=== PATIENT | male | born 1990 | race Caucasian/White ===

== ENCOUNTER 2018-12-30 09:28 | Emergency (ER) | payer BC ==
[2018-12-30 09:41] VITALS: TEMP 98.3; BMI 24.1
[2018-12-30] MEDS ORDERED: morphine CARPU-JECT 4 MG/1 ML DISP.SYRIN IVPUSH ONE (10:04)
[2018-12-30] MEDS ORDERED: SODIUM CHLORIDE 1,000 ML IV STA ×2 (10:04→12:13)
[2018-12-30] MEDS ORDERED: ONDANSETRON 4 MG/2 ML VIAL IVPUSH ONE (10:04)
[2018-12-30] MEDS ORDERED: morphine SULFATE 4 MG/ML VIAL ONE (10:16)
[2018-12-30] MEDS ORDERED: ONDANSETRON 4 MG/2 ML VIAL ONE (10:17)
[2018-12-30 10:47] LABS: BASO % 0.1 % (0-2.0); EOS % 1.6 % (0-4.5); HEMATOCRIT 47.6 % (35.4-49); HEMOGLOBIN 16.1 GM/dL (11.7-16.9); LYMPH % 9.2 % (8-40); MCHC 33.8 g/dl (32.0-35.9); MEAN CELL VOLUME 91.9 fl (80-96); MEAN PLT VOLUME 9.2 fl (7.5-11.1); MONO % 4.3 % (3.8-10.2); NEUT % 84.8 % (42.8-82.8); PLATELET COUNT 220 K/MM3 (134-434); RBC 5.18 M/mm3 (4.00-5.60); WHITE BLOOD COUNT 15.7 K/mm3 (4.0-10.0)
--- NOTE | 2018-12-30 10:55 | PDOC ---
History of Present Illness - General History Source: Patient - History of Present Illness Timing/Duration: reports: constant Quality: reports: severe <Henny Lagunas - Last Filed: 12/30/18 15:02> <Donna Garber - Last Filed: 12/30/18 15:27> - General Chief Complaint: Pain, Acute Stated Complaint: WEAKNESS Time Seen by Provider: 12/30/18 09:49 Past History - Past Medical History COPD: No Other medical history: bells palsy - Suicide/Smoking/Psychosocial Hx Smoking History: Never smoked <Henny Lagunas - Last Filed: 12/30/18 15:02> <Donna Garber - Last Filed: 12/30/18 15:27> - Past Medical History Allergies/Adverse Reactions: Allergies Allergy/AdvReac Type Severity Reaction Status Date / Time Sulfa (Sulfonamide Allergy Verified 12/30/18 09:38 Antibiotics) Home Medications: Ambulatory Orders Ibuprofen [Motrin -] 800 mg PO Q6H #30 tablet 12/30/18 Ondansetron HCl [Zofran] 4 mg PO Q8H #12 tablet 12/30/18 Tamsulosin HCl [Flomax] 0.4 mg PO DAILY #7 cap.er.24h 12/30/18 Tamsulosin HCl [Flomax] 0.4 mg PO DAILY #7 capsule 12/30/18 Tramadol HCl 50 mg PO Q6H #20 tablet MDD 200 mg 12/30/18 Review of Systems - Review of Systems Constitutional: No: Chills, Fever ABD/GI: Yes: Nausea, Abdominal cramping. No: Blood Streaked Bowels, Constipated , Diarrhea, Rectal Bleeding, Vomiting : Yes: Flank Pain. No: Dysuria, Hematuria <Henny Lagunas - Last Filed: 12/30/18 15:02> *Physical Exam - Vital Signs Last Vital Signs Temp Pulse Resp BP Pulse Ox 98.3 F 75 18 151/92 100 12/30/18 09:39 12/30/18 09:39 12/30/18 09:39 12/30/18 09:39 12/30/18 09:39 - Physical Exam Comments: 12/30/18 10:55 ill luis fernando and pale General Appearance: Yes: Appropriately Dressed, Moderate Distress HEENT: positive: Normal Voice Neck: positive: Supple Respiratory/Chest: negative: Respiratory Distress Gastrointestinal/Abdominal: positive: Tender (to R side of abd, poorly localized ), Soft Male Genitalia: positive: normal genitalia Musculoskeletal: negative: CVA Tenderness Integumentary: positive: Dry, Warm Neurologic: positive: Fully Oriented, Alert, Normal Mood/Affect <Elisabeth LagunasLexi - Last Filed: 12/30/18 15:02> - Vital Signs Last Vital Signs Temp Pulse Resp BP Pulse Ox 98.3 F 75 18 151/92 100 12/30/18 09:39 12/30/18 09:39 12/30/18 09:39 12/30/18 09:39 12/30/18 09:39 <Donna Garber - Last Filed: 12/30/18 15:27> ED Treatment Course - LABORATORY CBC & Chemistry Diagram: 12/30/18 10:21 12/30/18 10:21 - RADIOLOGY Radiology Studies Ordered: Category Date Time Status ABDOMEN & PELVIS CT WITH CONTR [CT] Stat CT Scan 12/30/18 10:04 Ordered - Medications Given in the ED: ED Medications Discontinued Medications Generic Name Dose Route Start Last Admin Trade Name Freq PRN Reason Stop Dose Admin Morphine Sulfate 4 mg 12/30/18 10:04 12/30/18 10:29 Morphine Injection - IVPUSH 12/30/18 10:05 4 mg ONCE ONE Administration Ondansetron HCl 4 mg 12/30/18 10:04 12/30/18 10:29 Zofran Injection IVPUSH 12/30/18 10:05 4 mg ONCE ONE Administration <Elisabeth LagunasLexi - Last Filed: 12/30/18 15:02> - LABORATORY CBC & Chemistry Diagram: 12/30/18 10:21 12/30/18 10:21 - ADDITIONAL ORDERS Additional order review: Laboratory Results 12/30/18 10:21 Sodium 137 Potassium 3.8 Chloride 106 Carbon Dioxide 25 Anion Gap 6 L BUN 14 Creatinine 1.0 Creat Clearance w eGFR 88.34 Random Glucose 191 H Calcium 9.5 Total Bilirubin 0.6 AST 20 ALT 49 Alkaline Phosphatase 99 Total Protein 7.6 Albumin 4.4 Lipase 99 12/30/18 10:21 RBC 5.18 MCV 91.9 MCHC 33.8 RDW 13.0 MPV 9.2 Neutrophils % 84.8 H Lymphocytes % 9.2 Monocytes % 4.3 Eosinophils % 1.6 Basophils % 0.1 - Medications Given in the ED: ED Medications Discontinued Medications Generic Name Dose Route Start Last Admin Trade Name Radha PRN Reason Stop Dose Admin Sodium Chloride 1,000 mls @ 1,000 mls/hr 12/30/18 10:04 12/30/18 10:29 Normal Saline - IV 12/30/18 11:03 1,000 mls/hr ASDIR STA Administration Morphine Sulfate 4 mg 12/30/18 10:12/30/18 10:29 Morphine Injection - IVPUSH 12/30/18 10:05 4 mg ONCE ONE Administration Ondansetron HCl 4 mg 12/30/18 10:12/30/18 10:29 Zofran Injection IVPUSH 12/30/18 10:05 4 mg ONCE ONE Administration <Donna Garber - Last Filed: 12/30/18 15:27> Medical Decision Making - Medical Decision Making 12/30/18 10:53 28-year-old male, no significant history, here with severe right-sided abdominal pain that patient awoke with this a.m. + nausea, no vomiting. Denies change in bowel movements, fever or chills. No dysuria or hematuria. Denies history of similar pain and no history of kidney stones. See exam R/o appy vs renal stone Luis Fernando pale and ill w/ poorly localized ttp to R side of abd -pain control -labs -CT 12/30/18 12:48 WBC of [address] read as right hydro/hydroureter with 1 mm R UVJ stone. Also seen is nonspecific colitis involving mid right colon to mid transverse colon. Of note, patient has no diarrhea at this time. Also seen in ? 2 tiny appendicoliths but normal sized appendix. Patient's pain presently controlled, IV fluids, and Flomax in progress. Anticipate discharge with follow-up 12/30/18 14:28 Pt reports feeling significantly better at this time. CT findings discussed with patient including non-specific colitis and ? appendicoliths. Told to return for any worsening of symptoms including diarrhea, fever or chills. In the meantime, patient to drink plenty of fluids. Given prescription for pain control and Zofran. Patient also given a cup in an attempt to collect stone at home. No e/o infxn on UA. Pt given follow-up with Dr. Grant of urology. <BeboClementinaRayna - Last Filed: 12/30/18 15:02> - Medical Decision Making The patient was seen and evaluated in conjunction with midlevel provider under my direct supervision, ancillary studies were reviewed. I agree with the plan as outlined by PENNY Lagunas. HPI, workup/dispo as outlined. VS reviewed, wnl. labs with leukocytosis, c/w infection/inflammation CT with right hydro, perinephric stranding, suggestive of 1mm UVJ stone/ no diarrhea, so unlikely colitis. defer abx as pt not symptomatic, risks outweigh benefits. UA neg analgesia, IVF reassess, comfortable, pt clinically improved and well apperaing. tx as sx uretherolithiasis, likely to pass conservatively, analgesia rx, f/u urology [facility] [employer] Dr Hoang, urine strain and diet modifications, hydration 12/30/18 12:22 12/30/18 15:26 12/30/18 15:27 <Donna Garber - Last Filed: 12/30/18 15:27> *DC/Admit/Observation/Transfer <Henny Lagunas - Last Filed: 12/30/18 15:02> <Donna Garber - Last Filed: 12/30/18 15:27> Diagnosis at time of Disposition: Renal stone - Discharge Dispostion Disposition: HOME Condition at time of disposition: Improved - Prescriptions Prescriptions: Ibuprofen [Motrin -] 800 mg PO Q6H #30 tablet Ondansetron HCl [Zofran] 4 mg PO Q8H #12 tablet Tamsulosin HCl [Flomax] 0.4 mg PO DAILY #7 cap.er.24h Tamsulosin HCl [Flomax] 0.4 mg PO DAILY #7 capsule Tramadol HCl 50 mg PO Q6H #20 tablet MDD 200 mg - Referrals Referrals: Lance Hoang MD [Staff Physician] - - Patient Instructions Printed Discharge Instructions: Kidney Stones -- Adult Additional Instructions: You were found to have a 1 mm stone in your right ureter near your bladder. There is 80% chance of the stone passing on its own over the next 2-3 days. You were given a cup in order to attempt to collect urine so that you can present this to urology In the meantime, drink plenty of fluids and take medications as provided for pain and nausea as needed. Also seen on the CT was nonspecific inflammation (colitis) of your colon on the right side. If you develop worsening symptoms in general including diarrhea, fever or chills, return to the ER immediately. You were given referral to a urologist
[2018-12-30 11:21] LABS: ALBUMIN 4.4 g/dl (3.4-5.0); ALK PHOS 99 U/L (45-117); ANION GAP 6 MMOL/L (8-16); BILIRUBIN,TOTAL 0.6 mg/dL (0.2-1); BLOOD UREA NITROGEN 14 mg/dL (7-18); CALCIUM 9.5 mg/dL (8.5-10.1); CHLORIDE 106 mmol/L (98-107); CO2 25 mmol/L (21-32); GLUCOSE,RANDOM 191 mg/dL (74-106); LIPASE 99 U/L (73-393); POTASSIUM 3.8 mmol/L (3.5-5.1); SGOT/AST 20 U/L (15-37); SGPT/ALT 49 U/L (13-61); SODIUM 137 mmol/L (136-145); TOT PROT 7.6 g/dl (6.4-8.2)
[2018-12-30] MEDS ORDERED: KETOROLAC TROMETHAMINE 30 MG/1 ML VIAL IVPUSH ONE (12:13)
[2018-12-30] MEDS ORDERED: KETOROLAC TROMETHAMINE 30 MG/1 ML VIAL ONE (12:27)
[2018-12-30] MEDS ORDERED: TAMSULOSIN HCL 0.4 MG CAP PO ONE (12:49)
[2018-12-30] MEDS ORDERED: TAMSULOSIN HCL 0.4 MG CAP ONE (13:07)
[2018-12-30 13:53] VITALS: BP 121/79; PULSE 72
[2018-12-30 14:35] LABS: EPI CELLS 1.5 /HPF (0-5); PH,URINE 7.5 (5.0-8.0); URINE APPEARANCE CLEAR; URINE BACTERIA 0.2 /hpf (NEGATIVE); URINE BILIRUBIN NEGATIVE (NEGATIVE); URINE CASTS 1 /hpf (0-8); URINE COLOR YELLOW; URINE GLUCOSE (UA) TRACE (NEGATIVE); URINE KETONE NEGATIVE (NEGATIVE); URINE LEUK ESTERASE NEGATIVE (NEGATIVE); URINE NITRITE NEGATIVE (NEGATIVE); URINE PROTEIN NEGATIVE (NEGATIVE); URINE RBC 70 /hpf (0-4); URINE UROBILINOGEN 0.2 mg/dL (0.2-1.0); URINE WBC 1 /hpf (0-5)
== END 2018-12-30 14:53 | disposition home or self-care (01) ==
LOC: JER 09:28
PROC: 3E033GC Introduction of Other Therapeutic Substance into Peripheral Vein, Percutaneous Approach (ICD-10-PCS; principal; 2018-12-30)
PROC: 3E033NZ Introduction of Analgesics, Hypnotics, Sedatives into Peripheral Vein, Percutaneous Approach (ICD-10-PCS; 2018-12-30)
PROC: 3E0333Z Introduction of Anti-inflammatory into Peripheral Vein, Percutaneous Approach (ICD-10-PCS; 2018-12-30)
DX: N13.2 Hydronephrosis with renal and ureteral calculous obstruction (principal); D72.828 Other elevated white blood cell count
CPT/HCPCS: 36415; 74177-TC; 80053; 81003; 83690; 85025; 99282-25; J7030